=== PATIENT | female | born 1965 | race Caucasian/White ===

== ENCOUNTER 2023-09-07 12:49 | Emergency (ER) | payer OTHER, SELFPAY ==
[2023-09-07 12:50] VITALS: BMI 32.5
--- NOTE | 2023-09-07 12:53 | ED.GENMED ---
History of Present Illness
General
Chief Complaint: Breathing Problem
Time Seen by Provider: 09/07/23 12:53
Travel History
Have you had any contact with someone who has COVID-19?: No
Do you have any symptoms of coronavirus? Fever > 100 degrees, chills, cough, shortness of breath, sore throat, loss of taste or smell, muscle aches, or headache?: Yes
Symptoms:: cough
History of Present Illness
History of Present Illness:
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 This is associate with a cough. She had a very similar episode about 2 months ago. She was at work when she had another episode similar to prior when she had abrupt
onset shortness of breath. She was coughing which was severe. EMS arrived and noticed inspiratory and expiratory wheezing. She received 2 DuoNebs and feels somewhat improved currently.
EXAM:
GENERAL: In mild distress with very prominent cough wet sounding cough
HEENT: Moist oral mucosa
CARDIOVASCULAR: No murmurs, tachycardia heart rate with regular rhythm, No chest wall tenderness
PULMONARY: Mild respiratory distress, breath sounds equally decreased with wheeze and rhonchi heard diffusely
ABDOMEN: Soft with no peritoneal signs, no tenderness
NEUROLOGIC: Excellent strength all extremities, no coordination deficits
PSYCHIATRIC: Appropriate mental status, normal insight and judgement
EXTREMITIES: Nontender, no edema, moves all extremities equally
SKIN: No rash, no lesions
ED COURSE:
12:55 PM: I initially evaluated patient
NUMBER AND COMPLEXITY OF PROBLEMS ADDRESSED AT THE ENCOUNTER
� Chronic conditions affecting care: History of breast cancer
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
� Differential Diagnosis includes: Reactive airway disease, pneumonia, doubt cardiac etiology as she has a very prominent cough with wheezing and rhonchi
AMOUNT AND/OR COMPLEXITY OF DATA TO BE REVIEWED AND ANALYZED
� I performed an independent evaluation of and my interpretation is:
EKG: Sinus 109, normal axis, no acute ST abnormality, incomplete right bundle branch block
CT:
X-rays: Chest x-ray personally viewed and shows atelectasis versus right sided pneumonia at the base�I reviewed radiologist report there is concern for pneumonia
Laboratory Studies: White count normal, hemoglobin normal,/flu negative
Other:
� Review of other/old records: I reviewed PFTs from last year. No obstructive or restrictive lung defect noted, normal study.
� Clinical information was obtained by an independent historian: EMS
� Prescriptions/Medications Considered but not given:
� Further testing considered but not performed:
RISK OF COMPLICATIONS AND/OR MORBIDITY OR MORTALITY OF PATIENT MANAGEMENT
� Social determinants of health affecting care: Lives at home, works at a school locally
� Discussion with other providers: I spoke to EMS
� Escalation of care including admission/observation vs risk of discharge considered: I spoke to EMS who also personally knows the patient. Although he reported initial cyanosis, at the time he also reports room air sat of 94%.
Currently she is not cyanotic with sat of 96%. She has markedly abnormal breath sounds. On reassessment at 2:50 PM, the patient's heart rate is 120. She feels overall somewhat improved. She feels thirsty. Will give a liter of fluid. I offered
and considered admitted to the hospital however the patient would prefer to hold off at this time. Will reassess after liter of fluid is given. Her breath sounds are improved. She is moving air better now. I reassessed patient at 4:30 PM. Heart
rate is now down to 102. She feels significantly improved and prefers to go home which I feel is reasonable. As there is some concern for pneumonia we will start azithromycin and also continue steroids.
Past History
Past History
ED Past Medical History: Cancer (Breast CA)
ED Past Surgical History: Tonsilectomy and Other (Left mastectomy, Left breast implant, Varicose vein removed)
Social History
Tobacco: Non-smoker
Alcohol: Occasional
Personal:
Living: with family
Phy Exam
Physical Exam
Physical Exam:
See HPI
Scores
Heart Failure Risk
Heart Failure Risk Score: Not Applicable
Course
Orders/Labs/Results
Orders:
Orders
09/07/23 12:54
EKG [Electrocardiogram (*1)] Urgent
Reason for Study: Shortness of Breath
EKG- Treatment ONCE
09/07/23 12:59
Ipratropium/Albuterol Sulfate [Duoneb] 3 ml INH R NOW ONE
09/07/23 13:00
Ipratropium/Albuterol Sulfate [Duoneb] 3 ml INH R NOW ONE
MethylPREDNISolone PF [Solu-Medrol Pf] 125 mg IV NOW STA
CR Chest Portable - 1 View Urgent
Comment:
Reason For Exam: cough sob severe
Reason Study Needs to be Portable: Patient Unstable
09/07/23 13:04
Basic Metabolic Panel Urgent
COVID-19 Antigen Urgent
Source: Nasal Swab
Complete Blood Count/With Diff Urgent
Influenza A+B Rapid Molecular Urgent
[facility] Source: Nasal Swab
Specimen Description:
09/07/23 14:49
0.9% Sodium Chloride 1000 ml [Nss] 1,000 ml IV BOLUS
09/07/23 16:26
Azithromycin [Zithromax] 500 mg PO NOW STA
Abnormal Lab Results
09/07/23
13:04
MCH 31.7 H pg
(27.0-31.0)
Abs Immat Gran (auto) 0.1 H 10^3/uL
(0-0.05)
Immature Gran % 0.8 H %
(0-0.5)
Eosinophils % 7.4 H %
(0-6)
BUN 22 H mg/dl
(7-17)
Creatinine 0.5 L mg/dL
(0.6-1.0)
Glucose 104 H mg/dl
(70-99)
Calcium 10.4 H mg/dl
(8.4-10.2)
09/07/23 13:04
09/07/23 13:04
Vital Signs
Initial and Last Documented VS:
Initial Vital Signs
Pulse Resp Pulse Ox
106 15 94
09/07/23 12:52 09/07/23 12:52 09/07/23 12:52
Last Documented Vital Signs
Temp Pulse Resp BP Pulse Ox
98.1 F 102 13 125/90 97
09/07/23 12:53 09/07/23 16:19 09/07/23 16:19 09/07/23 16:17 09/07/23 16:19
*Critical Care Note
Total Time (30-74mins, 75-104mins- exclusive of procedures): Not Applicable
ED Attending Note
-
Portions of this chart may have been created with voice recognition software.� Occasional wrong word or��sound alike� substitutions may have occurred due to the inherent limitations of voice recognition software.
Discharge Plan
Departure
Patient Disposition: Home (Routine Discharge)
Date of Disposition: 09/07/23
Time of Disposition: 16:26
Patient with high blood pressure during this ER visit?: Yes
Discharge Problem:
Acute bronchitis
Instructions: Acute Bronchitis, Adult (DC), BLOOD PRESSURE
Prescriptions:
New
azithromycin 250 mg tablet
250 mg PO DAILY Qty: 4 0RF
prednisone 50 mg tablet
50 mg PO DAILY Qty: 4 0RF
No Action
multivitamin 1 EACH tablet
1 ea PO DAILY
lysine 1,000 MG tablet
1 tab PO BID
calcium carbonate 500 MG tablet
500 mg PO BID
exemestane [Aromasin] 25 MG tablet
25 mg PO HS
loratadine 10 MG tablet
10 mg PO DAILY
glucosam-sod chondro-vit C-laura 1 EACH tablet
4 cap PO DAILY
multivit [id number] 186 [Hair, Skin and Nails Advanced] 1 EACH tablet
1 ea PO DAILY
Echinacea
300 mg PO DAILY
Vitamin C:
1,000 mg PO BID
Vitamin D3:
25 mcg PO DAILY
Zinc
20 mg PO DAILY
Cbd Oil
16 mg PO DAILY
ondansetron 4 MG tablet,disintegrating
4 mg PO Q8H PRN (Reason: Nausea and Vomiting) 10 Days Qty: 15 0RF
hydrocodone-acetaminophen 15 ML solution
15 ml PO Q4HPRN PRN (Reason: Pain) Qty: 475 0RF
prednisone 20 mg tablet
40 mg PO DAILY Qty: 10 0RF
pantoprazole [Protonix] 40 mg tablet,delayed release (DR/EC)
40 mg PO DAILY Qty: 10 0RF
albuterol sulfate [ProAir HFA] 90 mcg/actuation HFA aerosol inhaler
2 puff inhalation Q4H PRN (Reason: shortness of breath or wheezing) Qty: 8.5 0RF
Referrals:
Farideh Cabrales MD [Family Provider] -
Activity Restrictions/Additional Instructions:
Basic blood work is unremarkable. The radiologist thought maybe there could be some sign of pneumonia at the bottom the right lung. I sent a prescription for both antibiotic as well as a steroid to your pharmacy. Return here if worse. Continue
use inhalers.
Interventions
Interventions:
*Risk Screen - Suicide Last Done: 09/07/23 12:59
*General Assessment Last Done: 09/07/23 12:59
*Neglect/Abuse Screening Last Done: 09/07/23 12:59
ED- Fall Risk Assessment Last Done: 09/07/23 12:59
*ED COVID-19 Vaccine History Last Done: 09/07/23 12:59
ED- Cardiac Assessment Last Done: 09/07/23 13:38
ED- Pulmonary Assessment Last Done: 09/07/23 13:38
[2023-09-07 13:00] VITALS: BP 161/89
[2023-09-07 13:01] VITALS: BP 161/89
[2023-09-07] MEDS: DUONEB 3 ML INH ×2 (13:20→13:21)
[2023-09-07] MEDS: SOLU-MEDROL PF 125 MG IV (13:21)
[2023-09-07 13:33] LABS: % Basophils 0.8 % (0-2); % Eosinophils 7.4 % (0-6); % Immature Granulocytes 0.8 % (0-0.5); % Lymphocytes 37.4 % (20.5-51.1); % Monocytes 8.2 % (1.7-9.3); % Neutrophils 45.4 % (42.2-75.2); Absolute Basophils 0.1 10^3/uL (0-0.2); Absolute Eosinophils 0.5 10^3/uL (0-0.7); Absolute Immature Granulocytes 0.1 10^3/uL (0-0.05); Absolute Lymphocytes 2.7 10^3/uL (1.2-3.4); Absolute Monocytes 0.6 10^3/uL (0.1-0.6); Absolute Neutrophils 3.3 10^3/uL (1.4-6.5); Hematocrit 39.4 % (37.0-47.0); Hemoglobin 13.5 g/dL (12.0-16.0); Mean Corp Hgb Conc. 34.3 g/dL (33.0-37.0); Mean Corpuscular Hgb 31.7 pg (27.0-31.0); Mean Corpuscular Volume 92.5 fL (81.0-99.0); Mean Platelet Volume 9.9 fL (7.4-10.4); Nucleated Red Blood Cells % 0 %; Platelet Count 344 10^3/uL (130-400); Red Blood Cell Count 4.26 10^6/uL (4.20-5.40); Red Cell Dist. Width 13.9 % (11.5-14.5); White Blood Cell Count 7.2 10^3/uL (4.8-10.8)
[2023-09-07 13:40] LABS: COVID-19 Antigen Negative (Negative)
[2023-09-07 14:00] VITALS: BP 136/82
[2023-09-07 14:47] LABS: Blood Urea Nitrogen 22 mg/dl (7-17); Calcium 10.4 mg/dl (8.4-10.2); Carbon Dioxide 27 mmol/L (22-30); Chloride 103 mmol/L (98-107); Estimated Creatinine Clearance > 125 ml/min; Glucose 104 mg/dl (70-99); Sodium 137 mmol/L (135-145); eGFR > 60.00
[2023-09-07 15:00] VITALS: BP 113/82
[2023-09-07] MEDS: NSS 1000 IV (15:01)
[2023-09-07 16:17] VITALS: BP 125/90
[2023-09-07 17:00] VITALS: BP 130/80
[2023-09-07] MEDS: ZITHROMAX 500 MG PO (17:03)
== END 2023-09-07 17:14 | disposition home or self-care (01) ==
LOC: EMR 12:49
PROVIDERS: EMERGENCY PHYSICIAN Emergency Medicine; FAMILY PHYSICIAN Family Medicine
DX: J20.9 Acute bronchitis, unspecified (principal); Z85.3 Personal history of malignant neoplasm of breast; Z90.12 Acquired absence of left breast and nipple
CPT/HCPCS: 99284; 94640; 96374; 96361; 71045; 80048; 85025; 87502; 87811; 93005

== ENCOUNTER → 2023-09-28 07:31 | Outpatient (REF) | payer OTHER, SELFPAY | LOC: RAD 07:31 | PROVIDERS: ATTENDING PHYSICIAN Family Medicine | DX: R05.3 Chronic cough (principal); R06.02 Shortness of breath; R06.2 Wheezing | CPT/HCPCS: 71260; Q9967 ==

== ENCOUNTER → 2023-12-14 08:19 | Outpatient (REF) | payer OTHER, SELFPAY | LOC: RAD 08:19 | PROVIDERS: FAMILY PHYSICIAN Family Medicine | DX: Z01.818 Encounter for other preprocedural examination (principal); Z90.12 Acquired absence of left breast and nipple | CPT/HCPCS: 74174; 93005; Q9967 ==

== ENCOUNTER → 2024-03-07 13:12 | Outpatient (REF) | payer OTHER, SELFPAY | LOC: HWRAD 13:12 | PROVIDERS: ATTENDING PHYSICIAN Nurse Practitioner Adult Health; FAMILY PHYSICIAN Family Medicine | DX: C50.412 Malignant neoplasm of upper-outer quadrant of left female breast (principal) | CPT/HCPCS: 77080 ==

== ENCOUNTER → 2024-03-25 13:30 | Outpatient (REF) | payer OTHER, SELFPAY | LOC: HWRAD 13:30 | PROVIDERS: ATTENDING PHYSICIAN Physician Assistant; FAMILY PHYSICIAN Family Medicine | DX: R19.00 Intra-abdominal and pelvic swelling, mass and lump, unspecified site (principal) | CPT/HCPCS: 76705 ==

== ENCOUNTER → 2024-10-21 08:02 | Outpatient (REF) | payer OTHER, SELFPAY | LOC: HWRAD 08:02 | PROVIDERS: ATTENDING PHYSICIAN Internal Medicine Endocrinology, Diabetes & Metabolism; FAMILY PHYSICIAN Family Medicine | DX: E21.0 Primary hyperparathyroidism (principal) | CPT/HCPCS: 76536 ==

== ENCOUNTER → 2024-10-25 08:52 | Outpatient (REF) | payer OTHER, SELFPAY | LOC: RAD 08:52 | PROVIDERS: ATTENDING PHYSICIAN Internal Medicine Endocrinology, Diabetes & Metabolism; FAMILY PHYSICIAN Family Medicine | DX: E55.9 Vitamin D deficiency, unspecified (principal); E21.0 Primary hyperparathyroidism; M81.0 Age-related osteoporosis without current pathological fracture | CPT/HCPCS: 78071; A9500 ==

== ENCOUNTER 2025-01-14 06:01 | Day surgery (SDC) | payer OTHER, SELFPAY ==
[2025-01-08 09:06] LABS: Hemoglobin 13.8 g/dL (12.0-16.0); Mean Corp Hgb Conc. 34.5 g/dL (33.0-37.0); Mean Corpuscular Hgb 31.9 pg (27.0-31.0); Mean Corpuscular Volume 92.4 fL (81.0-99.0); Platelet Count 253 10^3/uL (130-400); Red Blood Cell Count 4.33 10^6/uL (4.20-5.40); Red Cell Dist. Width 13.7 % (11.5-14.5)
[2025-01-08 09:14] LABS: INR 1.04; PT 14.1 Sec (11.4-14.6)
[2025-01-08 09:15] LABS: APTT 29.1 Sec (23.4-35.0)
[2025-01-08 10:31] LABS: ALT (SGPT) 44 U/L (0-35); AST (SGOT) 31 U/L (14-36); Albumin 4.7 g/dl (3.5-5.0); Alkaline Phosphatase 93 U/L (38-126); Blood Urea Nitrogen 15 mg/dl (7-17); Calcium 10.6 mg/dl (8.4-10.2); Carbon Dioxide 28 mmol/L (22-30); Chloride 108 mmol/L (98-107); Glucose 85 mg/dl (70-99); Potassium 4.5 mmol/L (3.5-5.1); Sodium 143 mmol/L (135-145); Total Bilirubin 1.1 mg/dl (0.2-1.3); Total Protein 7.7 g/dl (6.3-8.2); eGFR > 60.00
[2025-01-08 13:15] VITALS: BMI 31.1
[2025-01-14] VITALS (14 sets, daily range): BP systolic 107–124; BP diastolic 61–83; BMI 31.1
[2025-01-14] MEDS: HEPARIN 5000 UNITS SC (07:14)
[2025-01-14] MEDS: NEURONTIN 300 MG PO (07:14)
[2025-01-14] MEDS: TYLENOL 1000 MG PO (07:14)
[2025-01-14] MEDS: NORMOSOL-R/PLASMALYTE-A 1000 IV (07:24)
--- NOTE | 2025-01-14 08:53 | OR.RPT ---
Operative Report
Operative Report
Date of Operation: January 14, 2025
Preoperative Diagnosis: Parathyroid hyperparathyroidism - E210
Postoperative Diagnosis: Same
Surgeon: Capo Lopez M.D.
Operation: Minimally Invasive Right Inferior Parathyroidectomy - 85840
Anesthesia: GET
Estimated Blood Loss: 2 cc
Drains: None
Specimen: Left Inferior neck nodule, rule out parathyroid adenoma
Complications: None
Procedure:
The patient was taken to the operating room and placed in the usual supine position. After adequate general endotracheal anesthesia was established, the patient's neck was extended, prepped, and draped in the typical sterile fashion. A 4 cm
transcervical incision was made two fingerbreadths above the sternal notch. The skin incision was made with the #15 blade, and this was taken through the skin into the subcutaneous tissue. The underlying platysma muscle was divided, and subplatysmal
flaps were created superiorly to the thyroid cartilage and inferiorly to the sternal notch. Strap muscles were identified and at the midline.
Attention was turned to the patient's right side of the neck. The right thyroid lobe was mobilized medially. During this process, the right recurrent laryngeal nerve was identified and preserved throughout the surgery. The right lower neck nodule
was identified and noted to be enlarged, excised, and sent to the pathology department, which showed a hypercellular parathyroid gland. The intraoperative PTH levels normalized after 15 minutes.
After obtaining adequate hemostasis, the strap muscles were reapproximated with #3-0 Vicryl in a running fashion. The platysma muscle was reapproximated with #3-0 Vicryl in an interrupted fashion, and the skin was approximated with #4-0 Monocryl in
a running subcuticular fashion. The Steri-Strips and sterile dressings were placed. The patient tolerated the procedure well. The final instrument, needle, and sponge counts were correct. The patient was extubated and transferred to the PACU.
[2025-01-14 09:07] LABS: Turbo PTH 28.4 pg/ml (13.6-85.8)
[2025-01-14] MEDS: ZOFRAN 4 MG IV (09:36)
[2025-01-14] MEDS: PHENERGAN 50.5 MG IV (10:22)
--- NOTE | 2025-01-14 10:59 | SUR.PHASEI ---
patient in pacu - c/o very little incision discomfort - however nausea and vomitting have been re - occurring, medicated with zofran and phenergan. sleeping now. nausea has lessened. Sats dropped with sedation, working on deep breathing now,
== END 2025-01-14 14:14 | disposition home or self-care (01) ==
LOC: SDS 06:01
PROVIDERS: ATTENDING PHYSICIAN Surgery; FAMILY PHYSICIAN Family Medicine
DX: D35.1 Benign neoplasm of parathyroid gland (principal); E21.0 Primary hyperparathyroidism
CPT/HCPCS: 60500; 88305; 88332; 80053; 83970; 85027; 85610; 85730; 88331; 93005

== ENCOUNTER → 2025-03-11 09:23 | Outpatient (REF) | payer OTHER, SELFPAY | LOC: HWWDC 09:23 | PROVIDERS: ATTENDING PHYSICIAN Nurse Practitioner Adult Health; FAMILY PHYSICIAN Family Medicine | DX: Z12.31 Encounter for screening mammogram for malignant neoplasm of breast (principal) | CPT/HCPCS: 77063; 77067 ==

== ENCOUNTER 2025-03-25 14:31 | Outpatient (RCR) | payer OTHER, SELFPAY | END 2025-03-25 23:59 | disposition home or self-care (01) | LOC: RPT 14:31 | PROVIDERS: FAMILY PHYSICIAN Family Medicine | DX: C50.412 Malignant neoplasm of upper-outer quadrant of left female breast (principal); R19.00 Intra-abdominal and pelvic swelling, mass and lump, unspecified site; L90.5 Scar conditions and fibrosis of skin; M62.81 Muscle weakness (generalized); Z90.12 Acquired absence of left breast and nipple | CPT/HCPCS: 97112; 97140; 97162; 97530 ==

== ENCOUNTER 2025-05-13 15:13 | Outpatient (RCR) | payer OTHER, SELFPAY | END 2025-05-13 23:59 | disposition home or self-care (01) | LOC: RPT 15:13 | PROVIDERS: ATTENDING PHYSICIAN Physician Assistant; FAMILY PHYSICIAN Family Medicine | DX: C50.412 Malignant neoplasm of upper-outer quadrant of left female breast (principal); R19.00 Intra-abdominal and pelvic swelling, mass and lump, unspecified site; L90.5 Scar conditions and fibrosis of skin; M62.81 Muscle weakness (generalized); Z90.12 Acquired absence of left breast and nipple | CPT/HCPCS: 97112; 97140; 97530 ==

== ENCOUNTER → 2025-05-16 16:59 | Outpatient (REF) | payer OTHER, SELFPAY | LOC: RAD 16:59 | PROVIDERS: ATTENDING PHYSICIAN Plastic Surgery; FAMILY PHYSICIAN Family Medicine | DX: R19.00 Intra-abdominal and pelvic swelling, mass and lump, unspecified site (principal) | CPT/HCPCS: 74177; Q9967 ==

== ENCOUNTER 2025-06-13 06:53 | Outpatient (RCR) | payer OTHER, SELFPAY | END 2025-06-13 23:59 | disposition home or self-care (01) | LOC: RPT 06:53 | PROVIDERS: ATTENDING PHYSICIAN Physician Assistant; FAMILY PHYSICIAN Family Medicine | DX: C50.412 Malignant neoplasm of upper-outer quadrant of left female breast (principal); R19.00 Intra-abdominal and pelvic swelling, mass and lump, unspecified site; L90.5 Scar conditions and fibrosis of skin; M62.81 Muscle weakness (generalized); Z90.12 Acquired absence of left breast and nipple | CPT/HCPCS: 97112; 97140 ==